=== PATIENT | female | born 1990 | race American Indian/Alaskan Native ===

== ENCOUNTER 2017-02-19 18:44 | Emergency (ER) | payer SELFPAY ==
[~2017-02-19] VITALS: Ht 160 cm; Wt 69.0 kg
[2017-02-19] MEDS ORDERED: KETOROLAC 60MG/2ML VIAL IM ONE (19:45)
[2017-02-19] MEDS ORDERED: CYCLOBENZAPRINE 10MG TABLET PO PRN (21:45)
[2017-02-20 02:26] VITALS: BP 109/63
== END 2017-02-20 02:26 | disposition home or self-care (01) ==
LOC: EDSEX 18:44 → ER 19:46
DX: G44.209 Tension-type headache, unspecified, not intractable (principal); S39.012A Strain of muscle, fascia and tendon of lower back, initial encounter; S16.1XXA Strain of muscle, fascia and tendon at neck level, initial encounter; M25.521 Pain in right elbow; M25.051 Hemarthrosis, right hip; G89.29 Other chronic pain; M41.9 Scoliosis, unspecified; V09.9XXA Pedestrian injured in unspecified transport accident, initial encounter; Y93.89 Activity, other specified; Y99.8 Other external cause status; Y92.410 Unspecified street and highway as the place of occurrence of the external cause
CPT/HCPCS: 72131; 72192; 73502; 73700; 96372; 99284; J1885; Z7610